=== PATIENT | female | born 1950 | race Caucasian/White ===

== ENCOUNTER → 2016-12-10 | Outpatient (CLI) | payer BC ==
[~2016-12-10] MED LIST: CHOL100027 PO; LPT/20 PO; MULT-663
[2016-12-10 12:25] LABS: BASO % 0.5 %; BASO ABS # 0.03 K/uL (0-0.2); COMPLETE YES; EOS % 3.6 %; IG% 0.3 %; LYMPH % 33.1 %; MEAN CELL VOLUME 93.7 fL (80-100); MEAN CORPUSCULAR HEMOGLOBIN 29.5 pg (25-34); MEAN CORPUSCULAR HGB CONC 31.5 g/dl (32-36); MEAN PLATELET VOLUME 10.2 fL (7.4-10.4); MONO % 7.9 %; NEUT % 54.6 %; PLATELET COUNT 265 K/uL (130-400); RED BLOOD COUNT 4.27 M/uL (4.2-5.4); WHITE BLOOD COUNT 6.34 K/uL (4.8-10.8)
[2016-12-10 12:41] LABS: ALT/SGPT 21 U/L (12-78); AST/SGOT 16 U/L (15-37); BLOOD UREA NITROGEN 12 mg/dl (7-18); BUN/CREATININE RATIO 14.8 (10-20); CALCIUM 9.2 mg/dl (8.5-10.1); CARBON DIOXIDE 29 mmol/L (21-32); CHLORIDE 105 mmol/L (98-107); GLUCOSE 115 mg/dl (70-99); POTASSIUM 3.9 mmol/L (3.5-5.1); SODIUM 140 mmol/L (136-145); TRIGLYCERIDES 152 mg/dl (0-150); VERY LOW DENSITY LIPOPROT CALC 30 mg/dl
[2016-12-10 12:42] LABS: ESTIMATED AVERAGE GLUCOSE 157 mg/dl; HA1C FLAG Normal (Normal)
[2016-12-10 12:47] LABS: ALKALINE PHOSPHATASE 82 U/L (45-117); CHOLESTEROL 248 mg/dl (0-200); CHOLESTEROL/HDL RATIO 4.2; HDL CHOLESTEROL 59 mg/dl; LDL CHOLESTEROL CALCULATED 159 mg/dl
== END | disposition home or self-care (01) ==
LOC: C.LAB1850 09:56
PROVIDERS: ATTEND Internal Medicine Geriatric Medicine
DX: Z00.00 Encounter for general adult medical examination without abnormal findings (principal); E11.9 Type 2 diabetes mellitus without complications; E78.5 Hyperlipidemia, unspecified; E55.9 Vitamin D deficiency, unspecified; I10 Essential (primary) hypertension; E03.9 Hypothyroidism, unspecified; Z12.31 Encounter for screening mammogram for malignant neoplasm of breast

== ENCOUNTER → 2016-12-10 | Outpatient (CLI) | payer BC ==
--- NOTE | 2016-12-11 16:09 | MAMMOGRAPHY REPORT ---
BILATERAL DIGITAL SCREENING MAMMOGRAM TOMOSYNTHESIS WITH CAD: 12/10/2016 CLINICAL HISTORY: Routine screening examination. TECHNIQUE: Breast tomosynthesis in addition to standard 2D mammography was performed. Current study was also evaluated with a Computer Aided Detection (CAD) system. COMPARISON: Comparison is made to exams dated: 12/08/2015 mammogram, 07/21/2014 mammogram, 03/13/2013 m ammogram, 03/11/2012 mammogram, 02/06/2011 mammogram - [facility], and 06/10/2006. BREAST COMPOSITION: There are scattered areas of fibroglandular density in both breasts. FINDINGS: The parenchymal pattern is unchanged. No developing mass, architectural distortion or clus ter of suspicious microcalcifications is seen in either breast. IMPRESSION: ACR BI-RADS CATEGORY 2: BENIGN There is no mammographic evidence of malignancy. A 1 year screening mammogram is recommended. The pa tient will receive written notification of the results. Approximately 10% of breast cancers are not detected with mammography. A negative mammographic report should not delay biopsy if a clinically suggestive mass is present. Loulou Lora M.D. ay/:12/10/2016 16:45:30 Services Engineer: Jazz LICEA(Samreen)(Kayli), [facility] letter sent: Normal 1/2 BI-RADS Code: ACR BI-RADS Category 2: Benign
== END | disposition home or self-care (01) ==
LOC: C.MAMM 09:40
PROVIDERS: ATTEND Internal Medicine Geriatric Medicine
DX: Z12.31 Encounter for screening mammogram for malignant neoplasm of breast (principal)

== ENCOUNTER 2023-05-05 06:03 | Inpatient (IN) ==
[2023-05-05 06:38] LABS: Basophils # (auto) 0.04 K/uL (0.00-0.20); Basophils % (auto) 0.4 %; Eosinophils # (auto) 0.16 K/uL (0.00-0.50); Eosinophils % (auto) 1.4 %; Hematocrit (blood only) 41.3 % (37.0-47.0); Immature Granulocytes # (auto) 0.05 K/uL (0.01-0.20); Immature Granulocytes % (auto) 0.4 %; Lymphocytes # (auto) 2.15 K/uL (1.20-3.40); Lymphocytes % (auto) 19.3 %; Mean Corpuscular Hemoglobin 28.7 pg (25.0-34.0); Mean Corpuscular Hgb Conc 31.5 g/dL (32.0-36.0); Mean Corpuscular Volume 91.2 fL (80.0-100.0); Mean Platelet Volume 9.8 fL (9.4-12.4); Monocytes # (auto) 0.74 K/uL (0.11-0.59); Monocytes % (auto) 6.7 %; Neutrophils # (auto) 7.98 K/uL (1.40-6.50); Neutrophils % (auto) 71.8 %; Platelet Count 259 K/uL (130-400); RDW Coefficient of Variation 13.1 % (11.5-14.5); RDW Standard Deviation 43.5 fL (36.4-46.3); Red Blood Count 4.53 M/uL (4.20-5.40); White Blood Count 11.12 K/ul (4.8-10.8)
[2023-05-05] MEDS ORDERED: FAMOTIDINE 20MG IV PUSH 20 MG/5 ML SYR IV STA (06:47)
[2023-05-05] MEDS ORDERED: SODIUM CHLORIDE 0.9% 500 ML IV ONE (06:47)
[2023-05-05 06:50] LABS: Albumin Globulin Ratio 1.4 (0.9-2); Albumin Level 4.5 gm/dl (3.4-5.0); BUN Creatinine Ratio 17.7 (10-20); Bilirubin,Total 0.7 mg/dl (0.2-1.0); Calcium 10.2 mg/dl (8.6-10.3); Creatinine Clr Calc Pharmacy 47.6 ml/min; Est GFR (African American) 68.5 ml/min; Est GFR (Non-African American) 59.1 ml/min; Globulin 3.2 gm/dl (2.5-4.0); Potassium 3.6 mmol/L (3.5-5.1); Total Protein 7.7 gm/dl (6.0-8.3)
--- NOTE | 2023-05-05 06:51 | Emergency Department Note ---
Impression & Plan NSTEMI (non-ST elevated myocardial infarction), Epigastric abdominal pain, Chest pain, Gastroesophageal reflux disease ED Provider Note ED Provider Note NAME: ROLLY GARCIA AGE:73 SEX: Female : 1950 ARRIVES VIA: private vehicle INFORMANT: Patient ED PROVIDER(s): Cally William DO CHIEF COMPLAINT: Increased reflux and chest pain HPI: This is a 73-year-old female who presents emergency room due to concern for increased reflux type symptoms over the last 3 to 4 days. She states she does have a prior history of episodic reflux and knows she has a hiatal hernia. She states in the last 3 to 4 days it has been more severe radiating up into her chest and into her throat. She states she does have a heaviness and discomfort across her chest and into her left shoulder additionally. She states symptoms woke her up from sleep around 230 this morning and have been constant since. She does note that symptoms are improved sitting up versus lying down. She denies fevers or chills, black or bloody stools, shortness of breath, or dizziness. She does not routinely take an acid reducing medication and she is not had a prior EGD. She denies any recent fevers, chills, or URI symptoms. PAST MEDICAL HISTORY:See Below PAST SURGICAL HISTORY:See Below FAMILY HISTORY:See Below SOCIAL HISTORY:See Below HOME MEDICATIONS:See Below ALLERGIES:See Below VITALS:See Below PHYSICAL EXAMINATION: GENERAL: alert, well appearing, well nourished, no distress, non-toxic EYE EXAM: normal conjunctiva, PERRL and EOM's grossly intact OROPHARYNX: no exudate, no erythema, lips, buccal mucosa, and tongue normal and mucous membranes are moist NECK: supple, no nuchal rigidity, no adenopathy, non-tender LUNGS: Clear to auscultation. Normal chest wall mechanics, no w/r/r HEART: no murmurs, S1 normal and S2 normal ABDOMEN: abdomen soft, non-tender, normo-active bowel sounds, no masses, no rebound or guarding. BACK: Back is symmetrical on inspection and there is no deformity, no midline tenderness, no CVA tenderness. SKIN: no rashes, petechiae, orbruising UPPER EXTREMITIES: upper extremities are grossly normal. FROM, nml pulses b/l. LOWER EXTREMITIES: No pitting edema. FROM, nml pulses b/l. NEURO EXAM: Normal sensorium, cranial nerves II-XII grossly intact, normal speech, no facial droop,nogross weakness of arms, no gross weakness of legs. Gross sensation intact. No ataxia. Vital Signs: reviewed and remarkable Differential Diagnosis: acute coronary syndrome, pericarditis, pulmonary embolus, aortic dissection, pneumonia, pneumothorax, musculoskeletal pain, shingles, GERD, GI bleed, as well as others were considered MEDICAL DECISION MAKING: This is a 73 yo female who presents to the ER with concern for worsening GERD due to increased frequency and severity of epigastric pain whic radiates into her chest and throat. She was afebrile and VS stable. Labs drawn and sent, IV established, EKG and CXR performed and interpreted at bedside, and patient placed on telemetry. She was given IV pepcid, IV tylenol, and IVF. Her EKG was abnormal and troponin was elevated. She was given ASA, nitro paste after this was noted and I discussed her presentation with operations director cardiology. I updated the patient on the abnormalities and need for further cardiac evaluation. She was still having heaviness and discomfort at that time. I discussed her case with the hospitalist. Heparin drip added and IV morphine added. She had improvement of her pain but not resolution. Due to persistent discomfort and uptrending troponin, I discussed with the hospitalist my concern for more urgent need of cardiac catheterization. He was in agreement and a heart alert was called. Patient seen in the ER by interventional cardiology and taken for urgent cath. Consultation(s): 0755: Discussed with Dr. Kruger. 0832: Discussed with Dr. Tovar, [place] hospitalist team, for additional evaluation and mgmt. 0850: Dr. Sahu at bedside. ER Treatment Provided: See below 0948: Patient still having persistent symptoms although improved of chest heaviness and chest pain. Repeat troponin is uptrending. I did discuss this with the admitting hospitalist again, who would added sublingual nitro in addition to the patient she already had applied. Due to concern for persistent symptoms and unstable angina, he is in agreement with urgent cardiac catheterization. Heart Alert called. He will notify Dr. Kruger additionally. Diagnostics Interpreted By Me: -ECG: Normal sinus at 68, normal axis, normal intervals, appearance of ST depression noted in lead I, aVL, V2 through V6 with appearance of evolving elevation in lead III and aVF EKG #2: Normal sinus at 68, normal axis, normal intervals, PVC noted, prior ST/T wave abnormalities are improved -Cardiac Monitoring: An order was placed for continuous cardiac monitoring. The monitor shows a rate of 70 with normal sinus rhythm. -Laboratory studies: As stated above and show below. -Imaging studies: X-ray Chest: A single view study of the chest was reviewed and was negative for cardiomegaly, focal infiltrate, effusion, pulmonary edema, or wide mediastinum. Triage Nursing Note Reviewed Prior/Outside Records Reviewed Critical Care: Critical care of 50 min performed to assess and manage high likelihood of life- threatening ACS, involving labs and imaging performed with assessment to evaluate ACS diagnosis with frequent reassessment. This time includes bedside time, treatment discussions with patient/family/consultants, documentation time and excludes procedure time. Past Med/Surg History Medical History Claustrophobia Type 2 diabetes mellitus Subclinical hypothyroidism Osteopenia Hypertension Dyslipidemia Disc degeneration, lumbar Nausea and vomiting after administration of anesthetic agent Spinal stenosis Surgical History History of surgical removal of pilonidal cyst History of total abdominal hysterectomy and bilateral salpingo-oophorectomy History of bilateral tubal ligation History of neck surgery removed swollen lymph node History of colonoscopy History of cholecystectomy History of tooth extraction wisdom teeth History of bilateral cataract extraction Family History (Updated 05/05/23 @ 10:04 by Evgeny Tovar MD) Grandmother Colorectal cancer Unknown No problems noted. Mother Hypertension Gallbladder disease Grandmother (Paternal) Colorectal cancer Father Skin cancer Cancer Coronary heart disease CABG in his 70s Denies family history of Ovarian cancer Prostate cancer Breast cancer Lung cancer Stroke Social History (Updated 05/05/23 @ 10:05 by Evgeny Tovar MD) Smoking Status: Never smoker Second Hand Exposure: No; Do You Dip or Chew Tobacco: No; Hx Alcohol Use: No Hx Substance Use: No Preferred Language: German Communication Ability: Effective Visual Impairment: Limited Hearing Ability: Normal Cigar Head Puncher Required: No Beliefs That Will Affect Care: None marital status: Current Living Situation: Spouse current occupational status: retired 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 How many Children do You have: 2 Other Information That Helps Us Care for You: No Feels Safe at Home: Yes Safety Concerns: Feels Safe At This Time Childhood Exposure to Second-Hand Smoke: No Diet: regular Diet Comment: eating healthy caffeine: Yes Dental Care, Regularly: Yes Physical Activity Frequency: Does not Exercise Physical Activity Frequency Comment: walk Seatbelt Use: always Sunscreen Use: Yes Do you think of yourself as: straight/heterosexual Assistive Devices: Glasses Allergies Allergies Allergy/AdvReac Type Severity Reaction Status Date / Time Penicillins Allergy Severe RASH Verified 04/19/23 09:48 Sulfa (Sulfonamide Allergy Severe SWELLS & Verified 04/19/23 09:48 Antibiotics) HIVES latex Allergy Mild Rash Verified 04/19/23 09:48 Home Meds Home Medications Medication Instructions Recorded Confirmed calcium citrate 315 mg 2 tab PO BID 02/21/18 05/05/23 calcium-vitamin D3 6.25 mcg (250 unit) tablet (Citracal + Vitamin D Maximum) cholecalciferol (vitamin D3) 25 25 mcg PO BID 07/20/21 05/05/23 mcg (1,000 unit) capsule cranberry extract 1 cap PO DAILY 07/20/21 05/05/23 omega-3 fatty acids-vitamin E See Rx Instructions PO DAILY 07/20/21 05/05/23 [[place]-3 Fish Oil] vitamin E (dl, acetate) 90 mg (200 450 mg PO DAILY 10/04/21 05/05/23 unit) capsule cyanocobalamin (vitamin B-12) 1,000 mcg PO DAILY 10/05/22 05/05/23 1,000 mcg capsule blood-glucose meter 05/05/23 05/05/23 Previous Rx's Medication Instructions Recorded atorvastatin 10 mg tablet 10 mg PO DAILY #90 tabs 08/21/22 metformin 500 mg tablet,extended 1,000 mg (2 x 500 mg) PO BID 90 09/27/22 release 24 hr days #360 tabs Results & Data (ED) Vital Signs Vital Signs - 24 hr 05/05/23 06:06 05/05/23 06:15 05/05/23 06:31 Temperature 36.8 C Temperature Source Temporal Artery Scan Pulse Rate 68 69 Pulse Rate [Apical] 65 Pulse Rate from SpO2 Sensor Respiratory Rate 18 16 Respiratory Effort / Characteristics Non-Labored Spontaneous Respiratory Depth Normal Respiratory Pattern Regular Blood Pressure 173/82 H Blood Pressure [Left Arm] 177/110 H Blood Pressure Mean 112 Blood Pressure Mean [Left Arm] 132 Blood Pressure Position Sitting Pulse Oximetry 98 97 Oxygen Delivery Method Room Air Room Air Sepsis Recent Fever Within 48 Hours No Sepsis New/Unexplained Change in Mental Status N/A Sepsis Action Taken by Nursing No Action Required 05/05/23 07:00 05/05/23 07:31 05/05/23 07:45 Temperature Temperature Source Pulse Rate 65 72 74 Pulse Rate [Apical] Pulse Rate from SpO2 Sensor 67 73 76 Respiratory Rate 19 20 19 Respiratory Effort / Characteristics Respiratory Depth Respiratory Pattern Blood Pressure 159/82 H 184/91 H 164/88 H Blood Pressure [Left Arm] Blood Pressure Mean 107 122 113 Blood Pressure Mean [Left Arm] Blood Pressure Position Pulse Oximetry 98 97 98 Oxygen Delivery Method Sepsis Recent Fever Within 48 Hours Sepsis New/Unexplained Change in Mental Status Sepsis Action Taken by Nursing 05/05/23 07:54 05/05/23 08:00 05/05/23 08:15 Temperature Temperature Source Pulse Rate 66 66 66 Pulse Rate [Apical] Pulse Rate from SpO2 Sensor 66 68 67 Respiratory Rate 17 17 18 Respiratory Effort / Characteristics Respiratory Depth Respiratory Pattern Blood Pressure 156/85 H 160/84 H 164/84 H Blood Pressure [Left Arm] Blood Pressure Mean 108 109 110 Blood Pressure Mean [Left Arm] Blood Pressure Position Pulse Oximetry 98 96 96 Oxygen Delivery Method Room Air Room Air Room Air Sepsis Recent Fever Within 48 Hours Sepsis New/Unexplained Change in Mental Status Sepsis Action Taken by Nursing 05/05/23 08:30 05/05/23 08:45 05/05/23 09:00 Temperature Temperature Source Pulse Rate 78 67 70 Pulse Rate [Apical] Pulse Rate from SpO2 Sensor 67 71 Respiratory Rate 18 19 17 Respiratory Effort / Characteristics Respiratory Depth Respiratory Pattern Blood Pressure 152/84 H 160/84 H 155/82 H Blood Pressure [Left Arm] Blood Pressure Mean 106 109 106 Blood Pressure Mean [Left Arm] Blood Pressure Position Pulse Oximetry 95 96 96 Oxygen Delivery Method Room Air Room Air Room Air Sepsis Recent Fever Within 48 Hours Sepsis New/Unexplained Change in Mental Status Sepsis Action Taken by Nursing 05/05/23 09:15 05/05/23 09:25 05/05/23 09:30 Temperature Temperature Source Pulse Rate 78 87 70 Pulse Rate [Apical] Pulse Rate from SpO2 Sensor 78 73 70 Respiratory Rate 18 24 18 Respiratory Effort / Characteristics Respiratory Depth Respiratory Pattern Blood Pressure 143/90 H 147/107 H 123/71 Blood Pressure [Left Arm] Blood Pressure Mean 107 120 88 Blood Pressure Mean [Left Arm] Blood Pressure Position Pulse Oximetry 98 97 93 Oxygen Delivery Method Room Air Sepsis Recent Fever Within 48 Hours Sepsis New/Unexplained Change in Mental Status Sepsis Action Taken by Nursing 05/05/23 09:45 Temperature Temperature Source Pulse Rate 71 Pulse Rate [Apical] Pulse Rate from SpO2 Sensor 63 Respiratory Rate 13 Respiratory Effort / Characteristics Respiratory Depth Respiratory Pattern Blood Pressure 127/66 Blood Pressure [Left Arm] Blood Pressure Mean 86 Blood Pressure Mean [Left Arm] Blood Pressure Position Pulse Oximetry 95 Oxygen Delivery Method Sepsis Recent Fever Within 48 Hours Sepsis New/Unexplained Change in Mental Status Sepsis Action Taken by Nursing Laboratory Data 05/05/23 06:15 05/05/23 06:15 Lab Results 05/05/23 05/05/23 Range/Units 06:15 08:13 WBC 11.12 H (4.8-10.8) K/ul RBC 4.53 (4.20-5.40) M/uL Hgb 13.0 (12.0-16.0) g/dl Hct 41.3 (37.0-47.0) % MCV 91.2 (80.0-100.0) fL MCH 28.7 (25.0-34.0) pg MCHC 31.5 L (32.0-36.0) g/dL RDW Std Deviation 43.5 (36.4-46.3) fL RDW Coeff of Oj 13.1 (11.5-14.5) % Plt Count 259 (130-400) K/uL MPV 9.8 (9.4-12.4) fL Immature Gran % (Auto) 0.4 % Neut % (Auto) 71.8 % Lymph % (Auto) 19.3 % Mower % (Auto) 6.7 % Eos % (Auto) 1.4 % Baso % (Auto) 0.4 % Neut # (Auto) 7.98 H (1.40-6.50) K/uL Lymph # (Auto) 2.15 (1.20-3.40) K/uL Mower # (Auto) 0.74 H (0.11-0.59) K/uL Eos # (Auto) 0.16 (0.00-0.50) K/uL Baso # (Auto) 0.04 (0.00-0.20) K/uL Immature Gran # (Auto) 0.05 (0.01-0.20) K/uL PT 10.5 (9.0-12.0) Seconds INR 1.0 (0.9-1.1) APTT 27 (21-31) Seconds PTT Ratio 1.0 Sodium 139 (136-145) mmol/L Potassium 3.6 (3.5-5.1) mmol/L Chloride 96 L (98-107) mmol/L Carbon Dioxide 33 H (21-32) mmol/L Anion Gap 10 (3-11) BUN 17 (6-23) mg/dl Creatinine 0.96 (0.6-1.2) mg/dl Est Cr Clr Drug Dosing 47.6 ml/min Est GFR ( Amer) 68.5 ml/min Est GFR (Non-Af Amer) 59.1 ml/min BUN/Creatinine Ratio 17.7 (10-20) Glucose 202 H (70-99(Fasting)) mg/dl Calcium 10.2 (8.6-10.3) mg/dl Total Bilirubin 0.7 (0.2-1.0) mg/dl AST 36 (13-39) U/L ALT 35 (7-52) U/L Alkaline Phosphatase 73 (34-104) U/L Troponin I High Sens 376.3 H* 541.6 H* D (0-14) pg/ml Total Protein 7.7 (6.0-8.3) gm/dl Albumin 4.5 (3.4-5.0) gm/dl Globulin 3.2 (2.5-4.0) gm/dl Albumin/Globulin Ratio 1.4 (0.9-2) Lipase 28 (11-82) U/L Administered Medications Atorvastatin Calcium (Atorvastatin 40 Mg Tab) 40 mg PO DAILY RUIZ Stop: 06/04/23 11:48 Last Admin: 05/05/23 12:46 Dose: 40 mg Documented By: LUCINDA Sodium Chloride (Nss) 1,000 mls @ 100 mls/hr IV .Q10H RUIZ Stop: 06/04/23 09:59 Last Infusion: 05/05/23 20:53 Dose: Infused Documented By: Admin: 05/05/23 10:05 Dose: 100 mls/hr Documented By: AIDA Insulin Aspart (Insulin Aspart Per Unit Charge) 0 units SC ACHS RUIZ Stop: 06/04/23 11:48 Last Admin: 05/05/23 20:17 Dose: 1 units Documented By: LOURDES Co-signed By: JAKE Admin: 05/05/23 16:50 Dose: 2 units Documented By: LUCINDA Co-signed By: RADU Admin: 05/05/23 13:00 Dose: Not Given Documented By: LUCINDA Metoprolol Tartrate (Metoprolol Tartrate 25 Mg Tab) 12.5 mg PO Q6 RUIZ Stop: 06/04/23 16:44 Last Admin: 05/05/23 18:09 Dose: 12.5 mg Documented By: LUCINDA Ticagrelor (Ticagrelor 90 Mg Tab) 90 mg PO BID RUIZ Stop: 06/04/23 21:59 Last Admin: 05/05/23 20:52 Dose: 90 mg Documented By: LOURDES Vitamin D (Cholecalciferol 1,000 Units 25 Mcg Tab) 1,000 units PO BID RUIZ Stop: 06/04/23 20:59 Last Admin: 05/05/23 20:07 Dose: 1,000 units Documented By: LOURDES Discontinued Medications Aspirin (Aspirin 81 Mg Chew) 324 mg PO NOW STA Stop: 05/05/23 08:37 Last Admin: 05/05/23 08:52 Dose: 324 mg Documented By: AIDA Atropine Sulfate (Atropine Sulfate 0.1 Mg/Ml 10ml Syr) Confirm Administered Dose 1 mg IV .STK-MED ONE Stop: 05/05/23 10:44 Last Admin: 05/05/23 10:53 Dose: 0.5 mg Documented By: MICHELLE Fentanyl Citrate (Fentanyl Citrate Pf 100 Mcg/2 Ml Vial) Confirm Administered Dose 100 mcg .ROUTE .STK-MED ONE Stop: 05/05/23 10:09 Last Increment: 05/05/23 10:53 Dose: 25 mcg Documented By: MICHELLE Heparin Sodium (Porcine) (Heparin Sod (Porcine) 1000 Unit/Ml) 3,000 units IV NOW ONE Stop: 05/05/23 08:16 Last Admin: 05/05/23 08:25 Dose: 3,000 units Documented By: AIDA Co-signed By: JOSEP Heparin Sodium (Porcine) (Heparin (Porcine) 1000 Unit/Ml 10 Ml (Supplier Quality Engineering Manager Use Only)) Confirm Administered Dose 10,000 units .ROUTE .STK-MED ONE Stop: 05/05/23 10:09 Last Admin: 05/05/23 10:53 Dose: 9,000 units Documented By: MICHELLE Heparin Sodium/Dextrose (Heparin Iv Adult Wt-Based Low-Dose W/ Initial Bolus Protocol) 1 each IV NOW STA; Protocol Stop: 05/05/23 07:54 Last Admin: 05/05/23 08:29 Dose: 1 each Documented By: AIDA Heparin Sodium/Sodium Chloride (Heparin In Nss Infusion 1000 Unit/500 Ml (2 U/Ml) Bag) Confirm Administered Dose 3,000 units IV .STK-MED ONE Stop: 05/05/23 10:09 Last Admin: 05/05/23 10:53 Dose: 3,000 units Documented By: MICHELLE Sodium Chloride (Nss) 500 mls @ 999 mls/hr IV .Q31M ONE Stop: 05/05/23 07:17 Last Infusion: 05/05/23 07:31 Dose: Infused Documented By: Admin: 05/05/23 06:54 Dose: 999 mls/hr Documented By: PARVEEN Famotidine (Pepcid 20mg Iv Push) 20 mg in 5 mls @ 2.5 mls/min IV NOW STA Stop: 05/05/23 06:48 Last Admin: 05/05/23 06:54 Dose: 2.5 mls/min Documented By: PARVEEN Pantoprazole Sodium 40 mg/ (Syringe) 10 mls @ 5 mls/min IV NOW ONE Stop: 05/05/23 07:23 Last Admin: 05/05/23 07:45 Dose: 5 mls/min Documented By: AIDA Heparin Sodium/Dextrose (Heparin Sodium/Dextrose) 25,000 units in 500 mls @ 14 mls/hr IV .Q24H RUIZ; Protocol Stop: 06/04/23 08:14 Last Titration: 05/05/23 10:00 Dose: Infused Documented By: LUCINDA Co-signed By: YOLANDA Admin: 05/05/23 08:26 Dose: 700 units/hr, 14 mls/hr Documented By: AIDA Co-signed By: JOSEP Midazolam HCl (Midazolam Hcl 1 Mg/Ml 2ml Vial) Confirm Administered Dose 2 mg .ROUTE .STK-MED ONE Stop: 05/05/23 10:09 Last Increment: 05/05/23 10:53 Dose: 1 mg Documented By: [facility] Morphine Sulfate (Morphine Sulfate 2 Mg/Ml Carp) 2 mg IV NOW STA Stop: 05/05/23 08:12 Last Admin: 05/05/23 08:31 Dose: 2 mg Documented By: Morphine Sulfate (Morphine Sulfate 2 Mg/Ml Carp) 2 mg IV NOW STA Stop: 05/05/23 08:41 Last Admin: 05/05/23 08:55 Dose: 2 mg Documented By: Nicardipine HCl (Nicardipine Hcl Inj 2.5 Mg/Ml 10 Ml Amp) Confirm Administered Dose 25 mg .ROUTE .STK-MED ONE Stop: 05/05/23 10:09 Last Admin: 05/05/23 10:53 Dose: 25 mg Documented By: [facility] Nitroglycerin (Nitroglycerin 2% Ointment 30gm Tube) 1 inch EXT NOW STA Stop: 05/05/23 07:42 Last Admin: 05/05/23 07:44 Dose: 1 inch Documented By: Nitroglycerin (Nitroglycerin Sl 0.4 Mg/Tab Tab) Confirm Administered Dose 0.4 mg .ROUTE .STK-MED ONE Stop: 05/05/23 09:25 Last Admin: 05/05/23 09:43 Dose: Not Given Documented By: Nitroglycerin (Nitroglycerin Sl 0.4 Mg/Tab Tab) 0.4 mg SL NOW STA Stop: 05/05/23 09:26 Last Admin: 05/05/23 09:25 Dose: 0.4 mg Documented By: Nitroglycerin (Nitroglycerin Sl 0.4 Mg/Tab Tab) 0.4 mg SL NOW STA Stop: 05/05/23 09:54 Last Admin: 05/05/23 10:14 Dose: Not Given Documented By: Nitroglycerin/Dextrose (Nitroglycerin/D5w 100mcg/Ml 20ml Syr) Confirm Administered Dose 2,000 mcg .ROUTE .STK-MED ONE Stop: 05/05/23 10:10 Last Admin: 05/05/23 10:53 Dose: 2,000 mcg Documented By: [facility] Ticagrelor (Ticagrelor 90 Mg Tab) Confirm Administered Dose 180 mg .ROUTE .STK- MED ONE Stop: 05/05/23 10:36 Last Admin: 05/05/23 10:53 Dose: 180 mg Documented By: [facility] Imaging Data Radiologist's Impression: Chest X-Ray 05/05/23 06:47 XR chest 1V portable CLINICAL HISTORY: Chest pain. COMPARISON STUDY: No previous studies for comparison. FINDINGS: Lung volumes are normal. There is no consolidation to suggest pneumonia. Linear bibasilar densities represent atelectasis. There is no pneumothorax or pleural effusion. Cardiac size is normal. Mediastinal contours are normal. There is no evidence for pulmonary edema. IMPRESSION: No acute cardiopulmonary findings. ACT 112: Negative or not required by law. Electronically signed by: Brandyn Yuen M.D. 05/05/2023 7:10 AM Discharge Plan Visit Data Chief Complaint: GI Assessment Stated Complaint: HEART BURN AND INDIGESTION ED Provider: Cally William Discharge Problem: NSTEMI (non-ST elevated myocardial infarction), Epigastric abdominal pain, Chest pain, Gastroesophageal reflux disease Patient Disposition: Admitted As Inpatient Discharge Instructions Interventions: ED Discharge Assessment Last Done: 05/05/23 10:19
--- NOTE | 2023-05-05 07:12 | XRay Report ---
XR chest 1V portable CLINICAL HISTORY: Chest pain. COMPARISON STUDY: No previous studies for comparison. FINDINGS: Lung volumes are normal. There is no consolidation to suggest pneumonia. Linear bibasilar d ensities represent atelectasis. There is no pneumothorax or pleural effusion. Cardiac size is normal. Mediastinal contours are normal. There is no evidence for pulmonary edema. IMPRESSION: No acute cardiopulmonary findings. ACT 112: Negative or not required by law. Electronically signed by: Brandyn Yuen M.D. 05/05/2023 7:10 AM
--- NOTE | 2023-05-05 07:13 | Electrocardiogram Report ---
Test Reason : Blood Pressure : / mmHG Vent. Rate : 068 BPM Atrial Rate : 068 BPM P-R Int : 176 ms QRS Dur : 082 ms QT Int : 410 ms P-R-T Axes : 070 037 077 degrees QTc Int : 435 ms Normal sinus rhythm Poor R wave progression, consider anterior RI vs. lead placement vs. LVH ST segement changes concerning for ischemia Abnormal ECG No previous ECGs available Confirmed by Hussain Kruger ([id number]) on 05/05/2023 7:13:09 AM Referred By: Confirmed By:Tone Kruger
[2023-05-05] MEDS ORDERED: PANTOprazole 40 MG in SYRINGE 0 ML IV ONE (07:22)
[2023-05-05 07:32] LABS: Troponin I High Sensitivity 376.3 pg/ml (0-14)
[2023-05-05] MEDS ORDERED: NITROGLYCERIN 2% OINTMENT 30GM TUBE EXT STA (07:41)
[2023-05-05] MEDS ORDERED: Heparin IV Adult Wt-Based Low-Dose w/ INITIAL Bolus Protocol IV STA (07:53)
[2023-05-05] MEDS ORDERED: HEPARIN SOD (PORCINE) 1000 UNIT/ML IV ONE ×2 (08:10→08:15)
[2023-05-05] MEDS ORDERED: MoRPHine SULFATE 2 MG/ML CARP IV STA ×2 (08:11→08:40)
[2023-05-05] MEDS ORDERED: HEPARIN SODIUM/DEXTROSE 25,000 UNITS/500 ML BAG IV SCH (08:15)
[2023-05-05 08:34] LABS: Partial Thromboplastin Time 27 Seconds (21-31); Prothrombin Time 10.5 Seconds (9.0-12.0)
[2023-05-05] MEDS ORDERED: ASPIRIN 81 MG CHEW PO STA (08:36)
--- NOTE | 2023-05-05 08:42 | History & Physical Report ---
Date of Service May 05, 2023 Assessment & Plan (1) NSTEMI (non-ST elevated myocardial infarction): Plan: Clinical presentation most c/w NSTEMI. Initial EKG is concerning for anterior wall ischemia. Troponin elevation consistent with myocardial injury. Despite multiple doses of morphine IV, SL nitroglycerin, topical nitroglycerin, and institution of heparin drip she had refractory pain. Pain did improve with the above but did not fully resolve. After speaking with the ER attending physician it was felt that activating a code heart alert was the most prudent decision given her refractory pain (pain had been present constantly for nearly 8 hours). Dr Sahu, pig breeder, came to bedside for evaluation. Following her heart catheterization will trend troponin until the peak is seen. Plan to start beta devika, TONY or ARB, etc. Continue aspirin. Check lipids and a1c in the AM. Echo. (2) Type 2 diabetes mellitus: Plan: Check hemoglobin a1c. Hold metformin. Novolog SSI. Add basal insulin if needed. BSGs ac/hs. DM diet. (3) Dyslipidemia: Plan: Last lipid profile was 09/2022. LDL was just over 100 at that time. Chronically she is on low-dose lipitor 10mg daily. Will need high-intensity dosing. Check lipids in am. (4) Hypertension: Plan: This diagnosis is on her problem list but she is not on anti-hypertensive medication at home. She also reports that her BPs are either normal or even low at home. Her BPs have been high since presentation. Likely to need beta devika, etc. (5) Gastroesophageal reflux disease: Plan: Continue PPI while here. Plan extensively updated at bedside History of Present Illness Chief Complaint: chest heaviness/pain Primary Care Provider: Will Peace, Very pleasant 73yo female with history of T2DM, hyperlipidemia, and family history of CAD who presents to the ER at [facility] with 3 discrete episodes of chest pain/heaviness. First episode was Saturday afternoon which occurred while she was taking down her [place] tree. Heaviness/pain was in the substernal region with radiation to the left upper breast. She did not have nausea/emesis/dyspnea/diaphoresis with this first episode. Some of the pain traveled into the throat and she had a "burning" sensation there. She thought the episode was GERD and thus took antacids. Her pain resolved after about 1 hour. Her second episode of chest pain/heaviness occurred yesterday. The symptoms were "more intense" with a stronger chest pain/heaviness feeling in the same location (substernal with radiation to the left breast). Again she thought it was GERD-related and took antacids with resolution of the pain. Later in the day she walked from her home to another family member's home that is several hundred feet away and noted some dyspnea with that walk. She typically has no shortness of breath at rest or with exertional activities. On Saturday & Saturday she noted that her appetite was off and that she simply felt unwell. Finally, about 0230 this am, she was awakened from her sleep by the chest pain. The pain was again substernal with radiation to the left breast and left shoulder. This am she had severe diaphoresis with this episode. No nausea or emesis. No arm pain or jaw pain. She tried antacids this morning for the pain but the symptoms did not rommel. Thus, she was brought to the ER for evaluation. By the time of my assessment she had received the following - morphine x 2, nitropaste 1", asa 325mg x 1, and had been started on a heparin drip. Pain had improved from 8-9 down to about a 2-3. She still felt a "heavy" feeling in her chest. I gave an additional SL nitro x 1 and the pain improved but still was not resolved. I spoke with the ER physician and we both collectively agreed that a heart alert should be activated due to the refractory chest pain symptoms. Allergies Allergy/AdvReac Type Severity Reaction Status Date / Time Penicillins Allergy Severe RASH Verified 04/19/23 09:48 Sulfa (Sulfonamide Allergy Severe SWELLS & Verified 04/19/23 09:48 Antibiotics) HIVES latex Allergy Mild Rash Verified 04/19/23 09:48 Home Medications Medication Instructions Recorded Confirmed Type calcium citrate 315 mg 2 tab PO BID 02/21/18 05/05/23 History calcium-vitamin D3 6.25 mcg (250 unit) tablet (Citracal + Vitamin D Maximum) cholecalciferol (vitamin D3) 25 25 mcg PO BID 07/20/21 05/05/23 History mcg (1,000 unit) capsule cranberry extract 1 cap PO DAILY 07/20/21 05/05/23 History omega-3 fatty acids-vitamin E See Rx Instructions PO DAILY 07/20/21 05/05/23 History [[place]-3 Fish Oil] vitamin E (dl, acetate) 90 mg (200 450 mg PO DAILY 10/04/21 05/05/23 History unit) capsule atorvastatin 10 mg tablet 10 mg PO DAILY #90 tabs 08/21/22 05/05/23 Rx metformin 500 mg tablet,extended 1,000 mg (2 x 500 mg) PO BID 90 09/27/22 05/05/23 Rx release 24 hr days #360 tabs cyanocobalamin (vitamin B-12) 1,000 mcg PO DAILY 10/05/22 05/05/23 History 1,000 mcg capsule blood-glucose meter 05/05/23 05/05/23 History Past Med/Surg History Medical History Claustrophobia Type 2 diabetes mellitus Subclinical hypothyroidism Osteopenia Hypertension Dyslipidemia Disc degeneration, lumbar Nausea and vomiting after administration of anesthetic agent Spinal stenosis Surgical History History of surgical removal of pilonidal cyst History of total abdominal hysterectomy and bilateral salpingo-oophorectomy History of bilateral tubal ligation History of neck surgery removed swollen lymph node History of colonoscopy History of cholecystectomy History of tooth extraction wisdom teeth History of bilateral cataract extraction Family History (Updated 05/05/23 @ 10:04 by Evgeny Tovar MD) Grandmother Colorectal cancer Unknown No problems noted. 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 Required: No Beliefs That Will Affect Care: None marital status: Current Living Situation: Spouse current occupational status: retired 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 How many Children do You have: 2 Other Information That Helps Us Care for You: No Feels Safe at Home: Yes Safety Concerns: Feels Safe At This Time Childhood Exposure to Second-Hand Smoke: No Diet: regular Diet Comment: eating healthy caffeine: Yes Dental Care, Regularly: Yes Physical Activity Frequency: Does not Exercise Physical Activity Frequency Comment: walk Seatbelt Use: always Sunscreen Use: Yes Do you think of yourself as: straight/heterosexual Assistive Devices: Glasses Review of Systems Review of Systems: gen - fatigue x 1 month; appetite poor this weekend; no change in weight; no fevers or rigors eyes - no change in vision HENT - had a URI about 1 week ago, lasted 2-3 days; now resolved CV - chest pain episodes x 3 over the last 72 hours (see HPI); no orthopnea, no edema pulm - dyspnea yesterday only with walking; no cough/congestion; no chronic OLIVA GI - occasional heartburn; no abd pain; no N/V; no melena or BRBPR - no LUTS musculo - no myalgias endo - BSGs have been high lately skin - no rash psych - recent psychosocial stressors neuro - no headaches; no paresthesias Physical Exam Physical Exam: gen - very pleasant, NAD, a/o x 3 eyes - lens implants b/l, PERRL HENT - Tms clear b/l; mouth - MMM neck - no JVD, no bruits, no lymph nodes heart - RRR, s1 s2, no murmur/rub lungs - CTA b/l, no rales abd - soft NT ND BS+; no HSM chest - no chest wall tenderness to palpation ext - no edema, pulses 2+ b/l neuro - no facial droop; strength 5/5 x 4 exts; DTRs 2+ b/l skin - no rash psych - a/o x 3 Results & Data Results & Data Vital Signs (Past 12 Hours) Vital Signs Temp Pulse Pulse Resp BP BP Pulse Ox 05/05/23 06:31 69 05/05/23 06:15 65 16 177/110 H 97 05/05/23 06:06 36.8 C 68 18 173/82 H 98 O2 Del Method 05/05/23 06:31 05/05/23 06:15 Room Air 05/05/23 06:06 Room Air Laboratory Results Laboratory Results - last 24 hr 05/05/23 05/05/23 06:15 08:13 WBC 11.12 H RBC 4.53 Hgb 13.0 Hct 41.3 MCV 91.2 MCH 28.7 MCHC 31.5 L RDW Std Deviation 43.5 RDW Coeff of Oj 13.1 Plt Count 259 MPV 9.8 Immature Gran % (Auto) 0.4 Neut % (Auto) 71.8 Lymph % (Auto) 19.3 Ashley % (Auto) 6.7 Eos % (Auto) 1.4 Baso % (Auto) 0.4 Neut # (Auto) 7.98 H Lymph # (Auto) 2.15 Ashley # (Auto) 0.74 H Eos # (Auto) 0.16 Baso # (Auto) 0.04 Immature Gran # (Auto) 0.05 PT 10.5 INR 1.0 APTT 27 PTT Ratio 1.0 Sodium 139 Potassium 3.6 Chloride 96 L Carbon Dioxide 33 H Anion Gap 10 BUN 17 Creatinine 0.96 Est Cr Clr Drug Dosing 47.6 Est GFR ( Amer) 68.5 Est GFR (Non-Af Amer) 59.1 BUN/Creatinine Ratio 17.7 Glucose 202 H Calcium 10.2 Total Bilirubin 0.7 AST 36 ALT 35 Alkaline Phosphatase 73 Troponin I High Sens 376.3 H* 541.6 H* D Total Protein 7.7 Albumin 4.5 Globulin 3.2 Albumin/Globulin Ratio 1.4 Lipase 28 Diagnostic Findings Chest X-Ray 05/05/23 06:47 XR chest 1V portable CLINICAL HISTORY: Chest pain. COMPARISON STUDY: No previous studies for comparison. FINDINGS: Lung volumes are normal. There is no consolidation to suggest pneumonia. Linear bibasilar densities represent atelectasis. There is no pneumothorax or pleural effusion. Cardiac size is normal. Mediastinal contours are normal. There is no evidence for pulmonary edema. IMPRESSION: No acute cardiopulmonary findings. ACT 112: Negative or not required by law. Electronically signed by: Brandyn Yuen M.D. 05/05/2023 7:10 AM EKG #1 - NSR, ST depression anterior leads (about 1mm) EKG #2 - NSR, ST depression anterior leads improved, PVC Code Status & VTE Plan Code Status full code PG Care Time/CCT Total # of Minutes Spent Total Time Spent with Patient: Total time spent is greater than 50% in coordination of care (as documented) at patient's floor/unit and/or counseling patient: Coding Level of Care Code 99414 INT INP/OBS CARE MIN Diagnoses NSTEMI (non-ST elevated myocardial infarction) I21.4 Type 2 diabetes mellitus E11.9 Dyslipidemia E78.5 Hypertension I10 Gastroesophageal reflux disease K21.9
[2023-05-05] MEDS ORDERED: NITROGLYCERIN SL 0.4 MG/TAB TAB ONE (09:24)
[2023-05-05] MEDS: NITROGLYCERIN SL 0.4 MG/TAB TAB SL STA ×2 (09:24→10:14)
[2023-05-05] MEDS ORDERED: NITROGLYCERIN SL 0.4 MG/TAB TAB SL STA (09:25)
[2023-05-05] MEDS: SODIUM CHLORIDE 0.9% 1,000 ML IV SCH ×2 (10:05→20:54)
[2023-05-05] MEDS ORDERED: HEPARIN (PORCINE) 1000 UNIT/ML 10 ML (CATH LAB USE ONLY) ONE (10:08)
[2023-05-05] MEDS ORDERED: niCARdipine HCL INJ 2.5 MG/ML 10 ML AMP ONE (10:08)
[2023-05-05] MEDS ORDERED: MIDAZOLAM HCL 1 MG/ML 2ML VIAL ONE (10:08)
[2023-05-05] MEDS ORDERED: fentaNYL citrate PF 100 MCG/2 ML VIAL ONE (10:08)
[2023-05-05] MEDS ORDERED: NITROGLYCERIN/D5W 100MCG/ML 20ML SYR ONE (10:09)
[2023-05-05] MEDS ORDERED: TICAGRELOR 90 MG TAB ONE (10:35)
[2023-05-05] MEDS ORDERED: ATROPINE SULFATE 0.1 MG/ML 10ML SYR IV ONE (10:43)
--- NOTE | 2023-05-05 11:04 | Cardiac Catheterization ---
Cardiac Cath Procedure Full Procedure Date May 05, 2023 Pre-Procedure Diagnosis Pre-Procedure Diagnosis: Non STEMI AUC Score AUC Score: 2 Post-Procedure Diagnosis Post-Procedure Diagnosis: Successful PCI Procedure(s) Performed Procedure(s) Performed: Coronary Angiography and Drug Eluting Stent Head Turning Machine Operator Kathryn Sahu MD Estimated Blood Loss Estimated Blood Loss: None Medication(s) Medication(s): hep, ticagralor and asa Summary of Findings 100% occlusion of the circ with successful stenting Normal LAD Normal LM Normal RCA 100% true circ in av groove Hemodynamics Rest Ao:: 125/73 Final Ao: 126/73 LV: not done Recommendations Recommendations: PCI without planned CABG Radiation Exposure (mGy) 958 m Gy Contrast (mls) 75 Fluids (cc crystalloids) Fluids (cc crystalloids): 0 Procedural Complication(s) none I attest to the content of the Intraoperative Record and any orders documented therein. Any exceptions are noted below. 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 Cardiac Status Clinical evaluation leading to the procedure Chets pain x 3 days CAD Presenation: Unstable angina Anginal Classification: CCS IV Heart Failure: No Cardiogenic Shock within 24 Hours: No Cardiac Arrest within 24 Hours: No Imaging Studies Past 6 Months: No Stress Studies Past 6 Months: No Standard Exercise Test: No Stress Echocardiogram: No Stress Testing w/SPECT MPI: No Cardiac CTA: No STEMI OR Non-STEMI Symptom Onset Date: 05/02/23 Symptom Onset Time: 08:00 Thrombolytics: No Coronary Anatomy Circumflex (% Stenosis): Distal (100%) Diagnostic Physicians Name: Kathyrn Sahu MD Closure Device Recommendations: PCI without planned CABG Lesion Segment Name: Circ Culprit Artery: Yes Stenosis Prior to Rx (%): 100 Pre-Procedure SHASTA Flow: 0 Previously Treated Lesion: No Lesion Complexity: Non-High/Non-C Lesion Length (mm): 15 Thrombus Present: Yes Bifurcation Lesion: Yes Guidewire Across Lesion: Yes
--- NOTE | 2023-05-05 11:09 | History & Physical Report ---
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 Allergies Allergy/AdvReac Type Severity Reaction Status Date / Time Penicillins Allergy Severe RASH Verified 04/19/23 09:48 Sulfa (Sulfonamide Allergy Severe SWELLS & Verified 04/19/23 09:48 Antibiotics) HIVES latex Allergy Mild Rash Verified 04/19/23 09:48 Home Medications Medication Instructions Recorded Confirmed Type calcium citrate 315 mg 2 tab PO BID 02/21/18 05/05/23 History calcium-vitamin D3 6.25 mcg (250 unit) tablet (Citracal + Vitamin D Maximum) cholecalciferol (vitamin D3) 25 25 mcg PO BID 07/20/21 05/05/23 History mcg (1,000 unit) capsule cranberry extract 1 cap PO DAILY 07/20/21 05/05/23 History omega-3 fatty acids-vitamin E See Rx Instructions PO DAILY 07/20/21 05/05/23 History [[place]-3 Fish Oil] vitamin E (dl, acetate) 90 mg (200 450 mg PO DAILY 10/04/21 05/05/23 History unit) capsule atorvastatin 10 mg tablet 10 mg PO DAILY #90 tabs 08/21/22 05/05/23 Rx metformin 500 mg tablet,extended 1,000 mg (2 x 500 mg) PO BID 90 09/27/22 05/05/23 Rx release 24 hr days #360 tabs cyanocobalamin (vitamin B-12) 1,000 mcg PO DAILY 10/05/22 05/05/23 History 1,000 mcg capsule blood-glucose meter 05/05/23 05/05/23 History Past Med/Surg History Medical History Claustrophobia Type 2 diabetes mellitus Subclinical hypothyroidism Osteopenia Hypertension Dyslipidemia Disc degeneration, lumbar Nausea and vomiting after administration of anesthetic agent Spinal stenosis Surgical History History of surgical removal of pilonidal cyst History of total abdominal hysterectomy and bilateral salpingo-oophorectomy History of bilateral tubal ligation History of neck surgery removed swollen lymph node History of colonoscopy History of cholecystectomy History of tooth extraction wisdom teeth History of bilateral cataract extraction Family History (Updated 05/05/23 @ 10:04 by Evgeny Tovar MD) Grandmother Colorectal cancer Unknown No problems noted. Mother Hypertension Gallbladder disease Grandmother (Paternal) Colorectal cancer Father Skin cancer Cancer Coronary heart disease CABG in his 70s Denies family history of Ovarian cancer Prostate cancer Breast cancer Lung cancer Stroke Social History (Updated 05/05/23 @ 10:05 by Evgeny Tovar MD) Smoking Status: Never smoker Second Hand Exposure: No; Do You Dip or Chew Tobacco: No; Hx Alcohol Use: No Hx Substance Use: No Preferred Language: Guamanian Communication Ability: Effective Visual Impairment: Limited Hearing Ability: Normal Brine Tank Tender Required: No Beliefs That Will Affect Care: None marital status: Current Living Situation: Spouse current occupational status: retired 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 How many Children do You have: 2 Feels Safe at Home: Yes Childhood Exposure to Second-Hand Smoke: No Diet: regular Diet Comment: eating healthy caffeine: Yes Dental Care, Regularly: Yes Physical Activity Frequency: Does not Exercise Physical Activity Frequency Comment: walk Seatbelt Use: always Sunscreen Use: Yes Do you think of yourself as: straight/heterosexual Assistive Devices: Glasses Review of Systems Additional Comments: Chest pain Physical Exam Physical Exam: AAOx3 NAD Respiratory: normal respiratory effort, lungs clear to auscultation Cardiovascular: RRR, no murmur, no edema Gastrointestinal (Abdomen): normal bowel sounds, soft, nontender, no hepatosplenomegaly Results & Data Vital Signs (Past 12 Hours) Vital Signs Temp Pulse Pulse Resp BP BP Pulse Ox 05/05/23 09:45 71 13 127/66 95 05/05/23 09:30 70 18 123/71 93 05/05/23 09:25 87 24 147/107 H 97 05/05/23 09:15 78 18 143/90 H 98 05/05/23 09:00 70 17 155/82 H 96 05/05/23 08:45 67 19 160/84 H 96 05/05/23 08:30 78 18 152/84 H 95 05/05/23 08:15 66 18 164/84 H 96 05/05/23 08:00 66 17 160/84 H 96 05/05/23 07:54 66 17 156/85 H 98 05/05/23 07:45 74 19 164/88 H 98 05/05/23 07:31 72 20 184/91 H 97 05/05/23 07:00 65 19 159/82 H 98 05/05/23 06:31 69 05/05/23 06:15 65 16 177/110 H 97 05/05/23 06:06 36.8 C 68 18 173/82 H 98 O2 Del Method 05/05/23 09:45 05/05/23 09:30 05/05/23 09:25 05/05/23 09:15 Room Air 05/05/23 09:00 Room Air 05/05/23 08:45 Room Air 05/05/23 08:30 Room Air 05/05/23 08:15 Room Air 05/05/23 08:00 Room Air 05/05/23 07:54 Room Air 05/05/23 07:45 05/05/23 07:31 05/05/23 07:00 05/05/23 06:31 05/05/23 06:15 Room Air 05/05/23 06:06 Room Air Diagnostic Findings EKG without HALEY
[2023-05-05] MEDS ORDERED: ONDANSETRON INJ 2 MG/ML 2 ML VIAL IV PRN (11:49)
[2023-05-05] MEDS ORDERED: NITROGLYCERIN SL 0.4 MG/TAB TAB SL PRN (11:49)
[2023-05-05] MEDS ORDERED: ACETAMINOPHEN 325 MG TAB PO PRN (11:49)
[2023-05-05] MEDS ORDERED: CARBOHYDRATES FOR HYPOGLYCEMIA PO PRN (12:00)
[2023-05-05] MEDS ORDERED: DEXTROSE 50% 50 ML SYRINGE IV PRN (12:00)
[2023-05-05] MEDS ORDERED: GLUCAGON FOR INJ 1 MG VIAL IM PRN (12:00)
[2023-05-05] MEDS ORDERED: PNEUMOCOCCAL VACCINE (PCV20) 20-VAL CONJ-DIP CRM/PF 0.5 ML SYR IM ONE (12:00)
[2023-05-05] MEDS ORDERED: GLUCOSE 40% GEL 15 GM TUBE PO PRN (12:00)
[2023-05-05] MEDS ORDERED: GLUCOSE 10 TAB/TUBE PO PRN (12:00)
[2023-05-05] MEDS: ATORVASTATIN 40 MG TAB PO SCH (12:46)
[2023-05-05] MEDS: INSULIN ASPART PER UNIT CHARGE SC SCH ×3 (13:00→20:17)
--- NOTE | 2023-05-05 13:26 | Electrocardiogram Report ---
Test Reason : Blood Pressure : / mmHG Vent. Rate : 068 BPM Atrial Rate : 068 BPM P-R Int : 182 ms QRS Dur : 078 ms QT Int : 440 ms P-R-T Axes : 073 008 075 degrees QTc Int : 467 ms Sinus rhythm with occasional Premature ventricular complexes Abnormal ECG When compared with ECG of 05-MAY-2023 06:12, Premature ventricular complexes are now Present Confirmed by Hussain Kruger ([id number]) on 05/05/2023 1:26:16 PM Referred By: REFERRED SELF Confirmed By:Tone Kruger
--- NOTE | 2023-05-05 16:39 | Cardiology Consultation ---
Date of Consultation May 05, 2023 Assessment & Plan (1) NSTEMI (non-ST elevated myocardial infarction): Plan 1. NSTEMI: Patient has symptoms related to occlusion of the circumflex. This accounts for this subtle EKG changes and significantly elevated biomarkers. Echocardiogram pending. Clinically doing well without evidence of recurrent symptoms or heart failure. Electrically stable. She will be continued on dual anti-platelet therapy with aspirin and ticagrelor. Lipitor increased to high dose. We will start beta blockade tonight and James inhibition tomorrow. Continue aggressive management of risk factors including hypertension and diabetes. She may benefit from a GLP 1 agonist or SGLT 2 inhibitor History of Present Illness Reason for Consultation: NSTEMI Requesting Physician: La Attending Physician: Evgeny Tovar MD History of Present Illness The patient is a 73-year-old woman without a known history of cardiac disease who presented to the emergency room with symptoms of chest discomfort. The patient states that for several days she has been having some episodes of a chest heaviness. This tends to occur at rest and was interpreted by the patient as indigestion. There was some radiation to the throat. Antacids did not provide significant relief but the symptoms did resolve over the course of a few hours. She was able to perform her usual activities without worsening symptoms. Perhaps an element of mild dyspnea at times. However, early this morning she was woken by similar symptoms did not respond to antacids and persisted. He therefore presented to the emergency room for evaluation. Her initial evaluation did involve elevated cardiac biomarkers. An EKG was also subtly abnormal. Attempts were made to provide relief from her symptoms. This included aspirin, nitroglycerin, morphine and heparin. However, her symptoms persisted and she was brought to the cardiac director of cath lab urgently for evaluation. She was discovered to have occlusion of the left circumflex artery and percutaneous intervention was performed with good result. At the time of my interview the patient had completed her catheterization. She stated her symptoms have been relieved entirely. He had some mild bleeding from the radial access site that was improved with reinflation of her radial band. She denies breathing difficulty currently. She states that generally speaking she is active walking but has been more sedentary in the colder weather. She denies dizziness or lightheadedness. No symptoms of syncope. No sense of palpitation. Allergies Allergy/AdvReac Type Severity Reaction Status Date / Time Penicillins Allergy Severe RASH Verified 04/19/23 09:48 Sulfa (Sulfonamide Allergy Severe SWELLS & Verified 04/19/23 09:48 Antibiotics) HIVES latex Allergy Mild Rash Verified 04/19/23 09:48 Home Medications Medication Instructions Recorded Confirmed Type calcium citrate 315 mg 2 tab PO BID 02/21/18 05/05/23 History calcium-vitamin D3 6.25 mcg (250 unit) tablet (Citracal + Vitamin D Maximum) cholecalciferol (vitamin D3) 25 25 mcg PO BID 07/20/21 05/05/23 History mcg (1,000 unit) capsule cranberry extract 1 cap PO DAILY 07/20/21 05/05/23 History omega-3 fatty acids-vitamin E See Rx Instructions PO DAILY 07/20/21 05/05/23 History [[place]-3 Fish Oil] vitamin E (dl, acetate) 90 mg (200 450 mg PO DAILY 10/04/21 05/05/23 History unit) capsule atorvastatin 10 mg tablet 10 mg PO DAILY #90 tabs 08/21/22 05/05/23 Rx metformin 500 mg tablet,extended 1,000 mg (2 x 500 mg) PO BID 90 09/27/22 05/05/23 Rx release 24 hr days #360 tabs cyanocobalamin (vitamin B-12) 1,000 mcg PO DAILY 10/05/22 05/05/23 History 1,000 mcg capsule blood-glucose meter 05/05/23 05/05/23 History Patient History Medical History Claustrophobia Type 2 diabetes mellitus Subclinical hypothyroidism Osteopenia Hypertension Dyslipidemia Disc degeneration, lumbar Nausea and vomiting after administration of anesthetic agent Spinal stenosis Surgical History History of surgical removal of pilonidal cyst History of total abdominal hysterectomy and bilateral salpingo-oophorectomy History of bilateral tubal ligation History of neck surgery removed swollen lymph node History of colonoscopy History of cholecystectomy History of tooth extraction wisdom teeth History of bilateral cataract extraction Family History (Updated 05/05/23 @ 10:04 by Evgeny Tovar MD) Grandmother Colorectal cancer Unknown No problems noted. Mother Hypertension Gallbladder disease Grandmother (Paternal) Colorectal cancer Father Skin cancer Cancer Coronary heart disease CABG in his 70s Denies family history of Ovarian cancer Prostate cancer Breast cancer Lung cancer Stroke Social History (Updated 05/05/23 @ 10:05 by Evgeny Tovar MD) Smoking Status: Never smoker Second Hand Exposure: No; Do You Dip or Chew Tobacco: No; Hx Alcohol Use: No Hx Substance Use: No Preferred Language: Kinyarwanda Communication Ability: Effective Visual Impairment: Limited Hearing Ability: Normal Edi Programmer Required: No Beliefs That Will Affect Care: None marital status: Current Living Situation: Spouse current occupational status: retired 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 Mood affect appear normal. She answered all questions appropriately. HEENT: Sclerae are anicteric. Pupils are equal and reactive to light and accommodation. Extraocular movements were intact. Neuro: Cranial nerves intact Lungs: Lungs are clear to auscultation bilaterally. There are no rales wheezes or rhonchi. She has normal respiratory effort without use of accessory muscles. There is normal pulmonary excursion. Cardiac: The rhythm was regular. S1 and S2 were normal. There are no murmurs on examination. The PMI was not markedly displaced on palpation. Extremities: Right radial HemoBand in place. Some a cool right hand, but overall good perfusion without pain. Good palpable left radial pulse. Skin: There are no rashes noted on examination today. Results & Data Vital Signs (Past 12 Hours) Vital Signs Temp Pulse Pulse Resp BP BP Pulse Ox 05/05/23 15:16 36.6 C 71 18 127/78 96 05/05/23 11:51 36.3 C L 97 H 18 129/76 94 05/05/23 09:45 71 13 127/66 95 05/05/23 09:30 70 18 123/71 93 05/05/23 09:25 87 24 147/107 H 97 05/05/23 09:15 78 18 143/90 H 98 05/05/23 09:00 70 17 155/82 H 96 05/05/23 08:45 67 19 160/84 H 96 05/05/23 08:30 78 18 152/84 H 95 05/05/23 08:15 66 18 164/84 H 96 05/05/23 08:00 66 17 160/84 H 96 05/05/23 07:54 66 17 156/85 H 98 05/05/23 07:45 74 19 164/88 H 98 05/05/23 07:31 72 20 184/91 H 97 05/05/23 07:00 65 19 159/82 H 98 05/05/23 06:31 69 05/05/23 06:15 65 16 177/110 H 97 05/05/23 06:06 36.8 C 68 18 173/82 H 98 O2 Del Method 05/05/23 15:16 Room Air 05/05/23 11:51 Room Air 05/05/23 09:45 05/05/23 09:30 05/05/23 09:25 05/05/23 09:15 Room Air 05/05/23 09:00 Room Air 05/05/23 08:45 Room Air 05/05/23 08:30 Room Air 05/05/23 08:15 Room Air 05/05/23 08:00 Room Air 05/05/23 07:54 Room Air 05/05/23 07:45 05/05/23 07:31 05/05/23 07:00 05/05/23 06:31 05/05/23 06:15 Room Air 05/05/23 06:06 Room Air Laboratory Results Abnormal Lab Results 05/05/23 05/05/23 05/05/23 06:15 08:13 12:47 WBC 11.12 H RBC 4.53 Hgb 13.0 Hct 41.3 MCV 91.2 MCH 28.7 MCHC 31.5 L RDW Std Deviation 43.5 RDW Coeff of Oj 13.1 Plt Count 259 MPV 9.8 Immature Gran % (Auto) 0.4 Neut % (Auto) 71.8 Lymph % (Auto) 19.3 Addison % (Auto) 6.7 Eos % (Auto) 1.4 Baso % (Auto) 0.4 Neut # (Auto) 7.98 H Lymph # (Auto) 2.15 Addison # (Auto) 0.74 H Eos # (Auto) 0.16 Baso # (Auto) 0.04 Immature Gran # (Auto) 0.05 PT 10.5 INR 1.0 APTT 27 PTT Ratio 1.0 Sodium 139 Potassium 3.6 Chloride 96 L Carbon Dioxide 33 H Anion Gap 10 BUN 17 Creatinine 0.96 Est Cr Clr Drug Dosing 47.6 Est GFR ( Amer) 68.5 Est GFR (Non-Af Amer) 59.1 BUN/Creatinine Ratio 17.7 Glucose 202 H POC Glucose Calcium 10.2 Total Bilirubin 0.7 AST 36 ALT 35 Alkaline Phosphatase 73 Troponin I High Sens 376.3 H* 541.6 H* D 84439.3 H* D Total Protein 7.7 Albumin 4.5 Globulin 3.2 Albumin/Globulin Ratio 1.4 Lipase 28 05/05/23 05/05/23 13:00 16:12 WBC RBC Hgb Hct MCV MCH MCHC RDW Std Deviation RDW Coeff of Oj Plt Count MPV Immature Gran % (Auto) Neut % (Auto) Lymph % (Auto) Addison % (Auto) Eos % (Auto) Baso % (Auto) Neut # (Auto) Lymph # (Auto) Addison # (Auto) Eos # (Auto) Baso # (Auto) Immature Gran # (Auto) PT INR APTT PTT Ratio Sodium Potassium Chloride Carbon Dioxide Anion Gap BUN Creatinine Est Cr Clr Drug Dosing Est GFR ( Amer) Est GFR (Non-Af Amer) BUN/Creatinine Ratio Glucose POC Glucose 134 H 172 H Calcium Total Bilirubin AST ALT Alkaline Phosphatase Troponin I High Sens Total Protein Albumin Globulin Albumin/Globulin Ratio Lipase Diagnostic Findings Chest x-ray obtained the time admission did not reveal any acute cardiopulmonary findings. Cardiac catheterization revealed normal left main, lad and right coronary artery with 100% occlusion of the left circumflex in the AV groove. PG Care Time/CCT Total # of Minutes Spent Total Time Spent with Patient: Total time spent is greater than 50% in coordination of care (as documented) at patient's floor/unit and/or counseling patient: Coding Level of Care Code 88923 INT INP/OBS CARE 3/75MIN Diagnoses NSTEMI (non-ST elevated myocardial infarction) I21.4
[2023-05-05] MEDS: METOPROLOL TARTRATE 25 MG TAB PO SCH (18:09)
[2023-05-05 19:55] LABS: Magnesium 1.6 mg/dl (1.7-2.4)
[2023-05-05] MEDS: CHOLECALCIFEROL 1,000 UNITS 25 MCG TAB PO SCH (20:07)
[2023-05-05 20:27] LABS: Troponin I High Sensitivity 29782.5 pg/ml (0-14)
[2023-05-05] MEDS: TICAGRELOR 90 MG TAB PO SCH (20:52)
[2023-05-06] MEDS: METOPROLOL TARTRATE 25 MG TAB PO SCH ×5 (00:22→23:29)
[2023-05-06 07:22] LABS: BUN Creatinine Ratio 13.5 (10-20); Calcium 8.8 mg/dl (8.6-10.3); Chol HDL Ratio 3.5 (0-5); Est GFR (Non-African American) 64.7 ml/min; Potassium 3.7 mmol/L (3.5-5.1)
[2023-05-06 07:39] LABS: Estimated Average Glucose 163 mg/dl; Hemoglobin A1C 7.3 % (4.5-5.6)
[2023-05-06] MEDS: SODIUM CHLORIDE 0.9% 1,000 ML IV SCH ×2 (08:28→16:46)
[2023-05-06] MEDS: CYANOCOBALAMIN (B-12) 500 MCG TABLET PO SCH (08:30)
[2023-05-06] MEDS: ASPIRIN 81 MG ECTAB PO SCH (08:30)
[2023-05-06] MEDS: ATORVASTATIN 40 MG TAB PO SCH (08:30)
[2023-05-06] MEDS: TICAGRELOR 90 MG TAB PO SCH ×2 (08:30→20:23)
[2023-05-06] MEDS: PANTOprazole 40 MG TAB PO SCH (08:31)
[2023-05-06] MEDS: CHOLECALCIFEROL 1,000 UNITS 25 MCG TAB PO SCH ×2 (08:32→20:23)
[2023-05-06] MEDS: INSULIN ASPART PER UNIT CHARGE SC SCH ×4 (08:32→20:22)
[2023-05-06] MEDS: MAGNESIUM SULFATE / D5W 1 GM/100 ML BAG IV SCH (10:18)
--- NOTE | 2023-05-06 15:11 | XCELERA ---
[id number]
[2023-05-06] MEDS: lisinopril 2.5 MG TAB PO SCH (16:55)
--- NOTE | 2023-05-06 18:41 | Cardiology Progress Note ---
Date of Service May 06, 2023 Assessment & Plan (1) NSTEMI (non-ST elevated myocardial infarction): (2) Mitral regurgitation: Plan 1. NSTEMI: She is doing quite well. We will continue observation overnight with a plan to discharge tomorrow. She was started on low-dose metoprolol and this could be converted to metoprolol succinate tomorrow. I also started low- dose James inhibition. We will decide on a discharge dose tomorrow. Continue dual anti-platelet therapy. Continue high-dose atorvastatin. As noted previously a good option for treating her diabetes would include GLP 1 agonist or SG LT 2 inhibitor. Can be discussed with the primary care physician after discharge. 2. Mitral regurgitation: Moderate on her echocardiogram. Again, normal LV systolic function. This can be monitored over time. Admission and Anticipated Discharge Date Admission Date: May 05, 2023 Subjective This afternoon the patient claimed he feeling well. She was ambulatory around the room without recurrent symptoms. No additional episodes of indigestion or chest pain. Some mild dyspnea with ambulation. Better at rest. No sense of palpitation. No dizziness. Review of Systems Review of Systems: Per HPI Cardiovascular: Additional Comments: Chest pain Physical Exam Physical Exam: She is alert and oriented x3. Mood affect appear normal. She answered all questions appropriately. HEENT: Sclerae are anicteric. Pupils are equal and reactive to light and accommodation. Extraocular movements were intact. Neuro: Cranial nerves intact Lungs: Lungs are clear to auscultation bilaterally. There are no rales wheezes or rhonchi. She has normal respiratory effort without use of accessory muscles. There is normal pulmonary excursion. Cardiac: The rhythm was regular. S1 and S2 were normal. There are no murmurs on examination. The PMI was not markedly displaced on palpation. Extremities: Good perfusion of the right hand. No bleeding. Some ecchymosis at the access site. Skin: There are no rashes noted on examination today. Results & Data Vital Signs (Past 12 Hours) Vital Signs Temp Pulse Pulse Resp BP Pulse Ox O2 Del Method 05/06/23 15:12 36.7 C 63 17 126/72 97 Room Air 05/06/23 14:55 80 05/06/23 10:46 36.6 C 77 17 134/74 98 Room Air 05/06/23 09:52 52 L 05/06/23 07:00 36.5 C 70 17 135/76 97 Room Air Laboratory Results Abnormal Lab Results 05/05/23 05/05/23 05/05/23 10:47 19:19 20:10 Activ Coag Time Kaolin 812 H Sodium Potassium Chloride Carbon Dioxide Anion Gap BUN Creatinine Est Cr Clr Drug Dosing Est GFR ( Amer) Est GFR (Non-Af Amer) BUN/Creatinine Ratio Glucose POC Glucose 162 H Estimat Average Glucose Hemoglobin A1c Calcium Magnesium 1.6 L Troponin I High Sens 66817.5 H* D Triglycerides Cholesterol LDL Cholesterol, Calc VLDL Cholesterol, Calc HDL Cholesterol Cholesterol/HDL Ratio 05/06/23 05/06/23 05/06/23 06:32 06:57 11:13 Activ Coag Time Kaolin Sodium 140 Potassium 3.7 Chloride 107 Carbon Dioxide 27 Anion Gap 6 BUN 12 Creatinine 0.89 Est Cr Clr Drug Dosing 51.0 Est GFR ( Amer) 75.0 Est GFR (Non-Af Amer) 64.7 BUN/Creatinine Ratio 13.5 Glucose 136 H POC Glucose 140 H 121 H Estimat Average Glucose 163 Hemoglobin A1c 7.3 H Calcium 8.8 Magnesium Troponin I High Sens Triglycerides 141 Cholesterol 163 LDL Cholesterol, Calc 88 VLDL Cholesterol, Calc 28 HDL Cholesterol 47 Cholesterol/HDL Ratio 3.5 05/06/23 15:59 Activ Coag Time Kaolin Sodium Potassium Chloride Carbon Dioxide Anion Gap BUN Creatinine Est Cr Clr Drug Dosing Est GFR ( Amer) Est GFR (Non-Af Amer) BUN/Creatinine Ratio Glucose POC Glucose 123 H Estimat Average Glucose Hemoglobin A1c Calcium Magnesium Troponin I High Sens Triglycerides Cholesterol LDL Cholesterol, Calc VLDL Cholesterol, Calc HDL Cholesterol Cholesterol/HDL Ratio Diagnostic Findings 05/06/2023: Overall LV systolic function normal with ejection fraction of 60- 65%. Very mild basal inferior hypokinesis. Moderate mitral regurgitation. PG Care Time/CCT Total # of Minutes Spent Total Time Spent with Patient: Total time spent is greater than 50% in coordination of care (as documented) at patient's floor/unit and/or counseling patient: Coding Level of Care Code 28813 SUB INP/OBS CARE 2/35MIN Diagnoses NSTEMI (non-ST elevated myocardial infarction) I21.4 Mitral regurgitation I34.0
[2023-05-06 19:33] VITALS: RESP 18
--- NOTE | 2023-05-06 20:12 | Hospitalist Progress Note ---
Date of Service May 06, 2023 Assessment & Plan (1) NSTEMI (non-ST elevated myocardial infarction): Plan: 2nd to 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 s/p emergent cath 05/05/[address] Sahu with successful NESTOR to this lesion. Other epicardial vessels - left main, LAD, RCA free of disease. Appreciate cardiology assistance. Peak HS trop - 48,200. Cont metoprolol. Add lisinopril (or ARB). Lipitor increased from 10mg to 40mg/day (high intensity). Cont asa. Cont ticagrelor BID. Will need nitro SL at discharge for emergency purposes. Lipid parameters noted. a1c noted. Echo today - preserved EF, normal valve function, mild inferior wall hypokinesis only. Ambulate today, hopeful for d/c tomorrow. (2) Type 2 diabetes mellitus: Plan: Hemoglobin a1c 7.3%. Hold metformin until d/c. Novolog SSI in meantime. BSGs ac/hs. DM diet. (3) Dyslipidemia: Plan: Lipid profile - LDL 88 HDL 47 Trigs 141 cont lipitor 40mg daily (4) Hypertension: Plan: This diagnosis is on her problem list but she was not on anti-hypertensive medication at home. Beta devika started in the face of #1. Adding low-dose TONY. (5) Gastroesophageal reflux disease: Plan: Continue PPI while here. She is very concerned about risk of GI bleeding while on DAPT. Could consider low-dose PPI if she desires. Plan extensively updated at bedside Home tomorrow. Admission and Anticipated Discharge Date Admission Date: May 05, 2023 Subjective patient feeling very well no complaints of chest heaviness or chest pain no dyspnea no GI symptoms she had multiple questions about aspirin/brilinta and the bruising from such she has long-standing tendency to bruise from aspirin Review of Systems Review of Systems: tele overnight - NSR gen - energy is significantly better cv - no cp, no orthopnea, no edema pulm - no cough or congestion GI - no heartburn overnight Physical Exam Physical Exam: gen - very pleasant, NAD, a/o x 3 - looks great today mouth - MMM neck - no JVD heart - RRR, s1 s2, no murmur/rub lungs - CTA b/l, no rales abd - soft NT ND BS+; no HSM ext - no edema, pulses 2+ b/l vascular - right radial artery w/o hematoma or aneurysm; mild ecchymoses only Results & Data Results & Data Vital Signs (Past 12 Hours) Vital Signs Temp Pulse Pulse Resp BP Pulse Ox O2 Del Method 05/06/23 19:33 36.5 C 74 18 138/78 97 Room Air 05/06/23 15:12 36.7 C 63 17 126/72 97 Room Air 05/06/23 14:55 80 05/06/23 10:46 36.6 C 77 17 134/74 98 Room Air 05/06/23 09:52 52 L Laboratory Results Laboratory Results - last 24 hr 05/05/23 05/05/23 05/05/23 10:47 19:19 20:10 Activ Coag Time Kaolin 812 H Sodium Potassium Chloride Carbon Dioxide Anion Gap BUN Creatinine Est Cr Clr Drug Dosing Est GFR ( Amer) Est GFR (Non-Af Amer) BUN/Creatinine Ratio Glucose POC Glucose 162 H Estimat Average Glucose Hemoglobin A1c Calcium Troponin I High Sens 22764.5 H* D Triglycerides Cholesterol LDL Cholesterol, Calc VLDL Cholesterol, Calc HDL Cholesterol Cholesterol/HDL Ratio 05/06/23 05/06/23 05/06/23 06:32 06:57 11:13 Activ Coag Time Kaolin Sodium 140 Potassium 3.7 Chloride 107 Carbon Dioxide 27 Anion Gap 6 BUN 12 Creatinine 0.89 Est Cr Clr Drug Dosing 51.0 Est GFR ( Amer) 75.0 Est GFR (Non-Af Amer) 64.7 BUN/Creatinine Ratio 13.5 Glucose 136 H POC Glucose 140 H 121 H Estimat Average Glucose 163 Hemoglobin A1c 7.3 H Calcium 8.8 Troponin I High Sens Triglycerides 141 Cholesterol 163 LDL Cholesterol, Calc 88 VLDL Cholesterol, Calc 28 HDL Cholesterol 47 Cholesterol/HDL Ratio 3.5 05/06/23 05/06/23 15:59 20:08 Activ Coag Time Kaolin Sodium Potassium Chloride Carbon Dioxide Anion Gap BUN Creatinine Est Cr Clr Drug Dosing Est GFR ( Amer) Est GFR (Non-Af Amer) BUN/Creatinine Ratio Glucose POC Glucose 123 H 125 H Estimat Average Glucose Hemoglobin A1c Calcium Troponin I High Sens Triglycerides Cholesterol LDL Cholesterol, Calc VLDL Cholesterol, Calc HDL Cholesterol Cholesterol/HDL Ratio PG Care Time/CCT Total # of Minutes Spent Total Time Spent with Patient: Total time spent is greater than 50% in coordination of care (as documented) at patient's floor/unit and/or counseling patient: Coding Level of Care Code 69794 SUB INP/OBS CARE Diagnoses NSTEMI (non-ST elevated myocardial infarction) I21.4 Type 2 diabetes mellitus E11.9 Dyslipidemia E78.5 Hypertension I10 Gastroesophageal reflux disease K21.9
[2023-05-07] MEDS: METOPROLOL TARTRATE 25 MG TAB PO SCH ×2 (05:43→11:37)
[2023-05-07 07:57] LABS: BUN Creatinine Ratio 11.6 (10-20); Calcium 9.3 mg/dl (8.6-10.3); Creatinine Clr Calc Pharmacy 47.8 ml/min; Est GFR (African American) 69.4 ml/min; Est GFR (Non-African American) 59.8 ml/min; Magnesium 2.1 mg/dl (1.7-2.4); Potassium 4.3 mmol/L (3.5-5.1)
[2023-05-07 08:12] LABS: Thyroid Stimulating Hormone 4.97 uIu/ml (0.300-4.500)
[2023-05-07] MEDS: lisinopril 2.5 MG TAB PO SCH (08:19)
[2023-05-07] MEDS: CHOLECALCIFEROL 1,000 UNITS 25 MCG TAB PO SCH (08:19)
[2023-05-07] MEDS: CYANOCOBALAMIN (B-12) 500 MCG TABLET PO SCH (08:19)
[2023-05-07] MEDS: TICAGRELOR 90 MG TAB PO SCH (08:19)
[2023-05-07] MEDS: INSULIN ASPART PER UNIT CHARGE SC SCH ×2 (08:20→11:32)
[2023-05-07] MEDS: ATORVASTATIN 40 MG TAB PO SCH (08:20)
[2023-05-07] MEDS: PANTOprazole 40 MG TAB PO SCH (08:20)
[2023-05-07] MEDS: ASPIRIN 81 MG ECTAB PO SCH (08:20)
[2023-05-07 08:45] LABS: T4 Free Thyroxine 0.92 ng/dl (0.61-1.60)
--- NOTE | 2023-05-07 10:28 | Cardiology Progress Note ---
Date of Service May 07, 2023 Assessment & Plan (1) NSTEMI (non-ST elevated myocardial infarction): (2) Mitral regurgitation: Plan 1. NSTEMI: No evident complication. No recurrent symptoms of chest discomfort. No breathing trouble. Patient has been ambulatory. No complication of the right radial access site. 2. Mitral regurgitation: Moderate on her echocardiogram. Again, normal LV systolic function. This can be monitored over time. I think she would be safe for discharge today. She should continue dual anti-platelet therapy. Continue high-dose atorvastatin, 40 mg daily Would discharge on metoprolol succinate 25 mg daily and lisinopril 5 mg daily I will make a referral to cardiac rehab She should follow up in our clinic in 2-4 weeks. Thank you Admission and Anticipated Discharge Date Admission Date: May 05, 2023 Subjective This morning patient claimed he feeling well. She did have some mild discomfort along the posterior margin of the neck. Not positional. Not severe. No recurrent symptoms of chest pain or indigestion. Eating well. Ambulating. No reported dyspnea or dizziness. Review of Systems Review of Systems: Per HPI Physical Exam Physical Exam: She is alert and oriented x3. Mood affect appear normal. She answered all questions appropriately. HEENT: Sclerae are anicteric. Pupils are equal and reactive to light and accommodation. Extraocular movements were intact. Neuro: Cranial nerves intact Lungs: Lungs are clear to auscultation bilaterally. There are no rales wheezes or rhonchi. She has normal respiratory effort without use of accessory muscles. There is normal pulmonary excursion. Cardiac: The rhythm was regular. S1 and S2 were normal. There are no murmurs on examination. The PMI was not markedly displaced on palpation. Extremities: Good perfusion of the right hand. Palpable right radial pulse. No bleeding. Some ecchymosis at the access site. Skin: There are no rashes noted on examination today. Results & Data Vital Signs (Past 12 Hours) Vital Signs Temp Pulse Resp BP Pulse Ox O2 Del Method 05/07/23 07:07 36.9 C 72 18 135/77 95 Room Air 05/07/23 02:43 36.9 C 76 18 138/73 96 Room Air 05/06/23 23:00 36.7 C 71 18 136/67 95 Room Air Laboratory Results Abnormal Lab Results 05/06/23 05/06/23 05/06/23 11:13 15:59 20:08 Sodium Potassium Chloride Carbon Dioxide Anion Gap BUN Creatinine Est Cr Clr Drug Dosing Est GFR ( Amer) Est GFR (Non-Af Amer) BUN/Creatinine Ratio Glucose POC Glucose 121 H 123 H 125 H Calcium Magnesium TSH Free T4 05/07/23 05/07/23 07:09 07:19 Sodium 136 Potassium 4.3 Chloride 104 Carbon Dioxide 25 Anion Gap 7 BUN 11 Creatinine 0.95 Est Cr Clr Drug Dosing 47.8 Est GFR ( Amer) 69.4 Est GFR (Non-Af Amer) 59.8 BUN/Creatinine Ratio 11.6 Glucose 120 H POC Glucose 112 H Calcium 9.3 Magnesium 2.1 TSH 4.970 H Free T4 0.92 PG Care Time/CCT Total # of Minutes Spent Total Time Spent with Patient: Total time spent is greater than 50% in coordination of care (as documented) at patient's floor/unit and/or counseling patient: Coding Level of Care Code 28888 SUB INP/OBS CARE 2/35MIN Diagnoses NSTEMI (non-ST elevated myocardial infarction) I21.4 Mitral regurgitation I34.0
[2023-05-07 10:42] VITALS: BP 133/78; PULSE 79; TEMP 97.5; O2SAT 98
--- NOTE | 2023-05-07 12:28 | Electrocardiogram Report ---
Test Reason : Blood Pressure : / mmHG Vent. Rate : 077 BPM Atrial Rate : 077 BPM P-R Int : 152 ms QRS Dur : 068 ms QT Int : 382 ms P-R-T Axes : 000 161 112 degrees QTc Int : 432 ms Likely limb lead reversal Normal sinus rhythm Low voltage QRS Left posterior fascicular block Abnormal ECG When compared with ECG of 05-MAY-2023 08:09, Premature ventricular complexes are no longer Present Left posterior fascicular block is now Present Confirmed by Hussain Kruger ([id number] on 05/07/2023 12:26:37 PM Referred By: REFERRED SELF Confirmed By:Tone Kruger
--- NOTE | 2023-05-07 18:01 | Discharge Summary ---
Date of Service May 07, 2023 Admission HPI Per Admitting Provider 73 yo with DM and HTN chadd hyperlipidemia presnting with CP and positive trops Lab activated. Principal Diagnosis Non-ST elevation RI Discharge Exam PHYSICAL EXAMINATION Last 24h vital signs reviewed, see documentation in flowsheet General: comfortable appearing, no distress HEENT: Normocephalic, atraumatic, pupils round and equal, sclerae anicteric, no conjunctival injection, moist mucus membranes Lungs: Normal respiratory effort. Clear to auscultation bilaterally. No RRW Heart: Regular rate and rhythm, no murmurs. No JVD Abdomen: Soft, nondistended. Bowel sounds present. Extremities: Warm, dry, well-perfused. No extremity edema. Neuro: Alert and oriented x 4, face symmetric, moves 4 extremities well Psych: Normal affect and behavior Discharge Data Allergies Allergy/AdvReac Type Severity Reaction Status Date / Time Penicillins Allergy Severe RASH Verified 04/19/23 09:48 Sulfa (Sulfonamide Allergy Severe SWELLS & Verified 04/19/23 09:48 Antibiotics) HIVES latex Allergy Mild Rash Verified 04/19/23 09:48 Consultations 05/05/23 08:35 ED Decision to Admit Stat 05/05/23 11:49 Consult Cardiology Routine Procedures Performed Operation Date: 05/05/23 10:15 Actual Procedures p Cineradiography w/Routine Exam - Kathryn Sahu MD p Cath, Left with Cors and Vent - Kathryn Sahu MD s Drug Eluting Stent SGl Vessel - Kathryn Sahu MD Ordered Studies 05/05/23 10:13 CL Cath Imgs for PACS use only Stat 05/05/23 06:15 05/07/23 07:19 Hospital Course (1) NSTEMI (non-ST elevated myocardial infarction): presented with chest pain episodes - she thought it was heartburn, she sought care when it recurred 2nd to 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 s/p emergent cath 05/05/[address] Sahu with successful NESTOR to this lesion. Other epicardial vessels - left main, LAD, RCA free of disease. Cardiology consulted Peak HS trop - 48,200. Echo - preserved EF, normal valve function, mild inferior wall hypokinesis only. Cont metoprolol succinate 25 mg started Added lisinopril 5 mg Lipitor increased from 10mg to 40mg/day (high intensity). Cont asa. Cont ticagrelor BID. -counseled not to stop DAPT prematurely Has been pain free since PCI Cardiac rehab referral will be made a1c noted - 7.3 near goal and was <7 earlier this year. We discussed she will make better effort with her diet, counseled less sugars and simple carbohydrates, will continue metformin and follow up with primary care. (2) Type 2 diabetes mellitus: see above (3) Dyslipidemia: Lipid profile - LDL 88 HDL 47 Trigs 141 cont lipitor 40mg daily (4) Hypertension: This diagnosis is on her problem list but she was not on anti-hypertensive medication at home. Beta devika started in the face of #1. Adding low-dose TONY. (5) Gastroesophageal reflux disease: She is very concerned about risk of GI bleeding while on DAPT. Could consider low-dose PPI Total Time Total Time Spent Total Time Spent (In Minutes): 25 minutes spent coordinating care for discharge Discharge Plan Discharge Items Patient Disposition: Home - Self-Care Reason For Visit: STEMI Discharge Diagnosis: NSTEMI Condition on Discharge: Good Activity: Per Instructions section Non-emergency contact: Primary Care Provider and Poultry Service Technician Call non-emergency contact if: you have any medication questions and your symptoms worsen Follow-up/Referrals: Hussain Kruger MD [Physician] - 05/13/23 3:30 pm (You will be seeing Loulou Lima PA-C.) Will Peace DO [Primary Care Provider] - 05/14/23 11:30 am Diet: Carb Consistent or DM2 and Heart Healthy Addtl Attending Provider Instructions: You were treated for heart attack A stent was placed in one of your heart arteries to open the blockage Your heart Echo was reassuring that your heart squeezes well The technology adoption manager recommended several medications: Aspirin and brilinta - these medications are critical to keeping the stent open. Stopping them prematurely can result in a clot in the stent, which can cause a severe heart attack. They should not be stopped early except in an emergency with consultation by a technology adoption manager. Atorvastatin - dose increased, lowers cholesterol, prevents heart attacks and strokes These medicines help your heart muscle heal: Metoprolol - this medicine helps your heart beat slower and stronger Lisinopril - helps your blood vessels relax and makes your heart work less hard, protects your kidneys Call your doctor if you develop rash or muscle pain or weakness while on these medicines. See your primary care doctor about your diabetes, continue your metformin, work on reducing sugars and simple carbohydrates in your diet [place] [facility] [place] 2[place]4 [place] The technology adoption manager is making a referral to cardiac rehab so that you can get active again Maddy Marr MD Pending Studies at Discharge: No Stand-Alone Forms: My [facility], Smoking Cessation Medications and DC Order Prescriptions: New Brilinta 90 mg Tablet 90 mg PO BID Qty: 60 1RF atorvastatin 40 mg Tablet 40 mg PO DAILY Qty: 30 0RF lisinopril 5 mg tablet 5 mg PO QAM Qty: 30 0RF metoprolol succinate 25 mg tablet extended release 24 hr 25 mg PO DAILY Qty: 30 0RF aspirin 81 mg Tablet,Delayed Release (Dr/Ec) 81 mg PO QAM Qty: 0 0RF Rx Instructions: buy over the counter Continued metformin 500 mg tablet extended release 24 hr 1,000 mg PO BID 90 Days Qty: 360 3RF Rx Instructions: Take with food. vitamin E (dl, acetate) 90 mg (200 unit) capsule 450 mg PO DAILY cholecalciferol (vitamin D3) 25 mcg (1,000 unit) capsule 25 mcg PO BID omega-3 fatty acids-vitamin E [[place]-3 Fish Oil] See Rx Instructions PO DAILY Rx Instructions: 1,000 mg PO daily; cranberry extract 1 cap PO DAILY cyanocobalamin (vitamin B-12) 1,000 mcg capsule 1,000 mcg PO DAILY calcium citrate-vitamin D3 [Citracal + D Maximum] 315-250 mg-unit Tablet 2 tab PO BID (DME) blood-glucose meter Discontinued atorvastatin 10 mg tablet 10 mg PO DAILY Qty: 90 3RF Discharge Orders: Discharge Order (Routine); Ordered 05/07/23 Ordered By: Maddy Walden/Other Patient Handouts: Diabetes and Heart Disease, Managing Type 2 Diabetes, Coronary Angioplasty Stenting Dc, Heart Disease Women, Eating Heart- Healthy Foods Admission Data Admit Date/Time: 05/05/23 10:38 Attending Provider: Maddy Marr Admit Provider: Evgeny Tovar Primary Care Provider: Will Peace Other Providers: Evgeny Tovar; Kathryn Sahu Other Interventions: Discharge Summary Assessment (RN) Last Done: 05/07/23 11:47 Coding Level of Care Code 66807 IN/OBS DISCH 30 MIN/LESS Diagnoses NSTEMI (non-ST elevated myocardial infarction) I21.4 Type 2 diabetes mellitus E11.9 Dyslipidemia E78.5 Hypertension I10 Gastroesophageal reflux disease K21.9
== END 2023-05-07 12:54 | disposition home or self-care (01) | DRG 322 ==
LOC: ED 06:03 → CC 10:19 → 2S 10:19 → SUATTDRO 10:38 → 2S 10:38
DX: Z88.2 Allergy status to sulfonamides; Z91.040 Latex allergy status; I25.110 Atherosclerotic heart disease of native coronary artery with unstable angina pectoris; K44.9 Diaphragmatic hernia without obstruction or gangrene; E78.5 Hyperlipidemia, unspecified; I34.0 Nonrheumatic mitral (valve) insufficiency; E11.9 Type 2 diabetes mellitus without complications; I21.4 Non-ST elevation (NSTEMI) myocardial infarction; Z88.0 Allergy status to penicillin; K21.9 Gastro-esophageal reflux disease without esophagitis; I10 Essential (primary) hypertension; Z79.84 Long term (current) use of oral hypoglycemic drugs